=== PATIENT | male | born 1970 | race Caucasian/White ===

== ENCOUNTER 2017-04-06 07:09 | Outpatient (CLI) | payer OTHER ==
[2017-04-06 07:48] LABS: eGFR (African) > 60; eGFR (Non-African) > 60
== END 2017-04-06 07:10 ==
LOC: LAB 07:09
PROVIDERS: ATTEND Family Medicine
DX: Z00.00 Encounter for general adult medical examination without abnormal findings (principal); Z13.29 Encounter for screening for other suspected endocrine disorder
CPT/HCPCS: 36415; 80053; 80061; 84443